=== PATIENT | female | born 1960 | race Caucasian/White ===

== ENCOUNTER 2020-12-10 08:03 | Observation (INO) ==
[2020-12-10] MEDS ORDERED: NORMAL SALINE 1,000 ML IV ONE (08:12)
--- NOTE | 2020-12-10 08:19 | ERNOTE ---
Dyspnea - Date Date of Service: 12/10/20 - General Presenting Symptoms: shortness of breath Time Seen by Provider: 12/10/20 08:09 Source: patient Exam Limitations: no limitations - Immun/Allergies/Home Medications Immunizations: IMMUNIZATION HX Immunizations Up to Date No History of Influenza Vaccine Yes Hx Pneumococcal Vaccination No Allergies/Adverse Reactions: Allergies lorazepam [From Ativan] Adverse Reaction (Verified 12/10/20 08:08) passed out Home Medications: HOME MEDICATIONS Ibuprofen [Motrin] 400 mg PO Q6H PRN 03/05/18 [Last Taken Unknown] naproxen 500 mg tablet,delayed release 500 mg PO BID PRN 11/21/19 [Last Taken Unknown] clomipramine 50 mg capsule 50 mg PO TID #270 cap 09/14/20 [Last Taken Unknown] tranylcypromine 10 mg tablet 10 mg PO TID #270 tab 09/14/20 [Last Taken Unknown] - History of Present Illness Narrative: patient presents with palpitations, SOB and fever. SH ehas been sick for 1 week. No cough, fever 102. No COVID contacts. No CP. Has not seen anyone else fo rthis. Feels her heart beating in her chets. No abdominal pain. No rash or leg swelling. Severity: moderate Treatment PENOLOGY TEACHER: none Initiating event: Reports: unknown Frequency of episodes: Reports: no prior episodes Modifying Factors - (Improves): Reports: nothing Modifying Factors (Worsens): Reports: activity Associated Symptoms-Dyspnea: Reports: fever/chills, palpitations. Denies: chest pain/discomfort, cough, wheezing, ankle/leg swelling, weakness Prior Treatment: Denies: recently seen Review of Systems - Review of Systems Constitutional: Absent: fever EYE: Present: no symptoms reported ENT: Absent: sore throat Respiratory: Present: shortness of breath Cardiology: Absent: chest pain Gastrointestinal/Abdominal: Absent: abdominal pain Genitourinary: Absent: dysuria Neurological: Absent: weakness All Other Systems: All systems neg except as marked Medical History (Last Reviewed 12/10/20 @ 08:17 by Nader Bernardo MD) ADD (attention deficit disorder) Depression Foot pain, left GERD (gastroesophageal reflux disease) Hypersomnia, unspecified Insomnia Lichen planus Obsessive-compulsive behavior Palpitations Surgical History: Surgical History (Last Reviewed 12/10/20 @ 08:17 by Nader Bernardo MD) H/O brain surgery H/O dilation and curettage History of ear surgery Family History: Family History (Last Reviewed 12/10/20 @ 08:17 by Nader Bernardo MD) Father Hypertension Mother Hypertension Social History: (Last Reviewed 12/10/20 @ 08:17 by Nader Bernardo MD) Social History: Marital status: Single lives independently: Yes Highest level of school completed/degree received: Associate degree: occupat Service: No Tobacco: Smoking Status: Never smoker Alcohol: alcohol intake: never Substance Use: substance use type: does not use Dietary Habits: caffeine: Yes caffeine comment: every day Exercise: Physical activity type: other cardio Physical activity functional status: independent ambulation frequency: 1-2 times per week Physical Exam - Physical Exam General Appearance: Present: alert, no apparent distress Head Exam: Present: normal inspection, no evidence of injury Eye Exam: Normal inspection: bilateral, PERRL: bilateral Ears, Nose, Throat: Present: normal ENT inspection Neck: Present: normal inspection Respiratory: Present: lungs clear. Absent: no accessory muscle use, decreased breath sounds, wheezing Cardiovascular/Chest: Present: normal peripheral pulses, tachycardia Gastrointestinal/Abdominal: Present: normal bowel sounds, nontender, nondistended, soft Back Exam: Absent: CVA tenderness (R), CVA tenderness (L) Extremity Exam: Present: normal inspection, normal range of motion, no edema Neurological Exam: Present: alert, no motor/sensory deficits, drum drier II-XII nml as tested Skin Exam: Present: normal color, warm/dry Progress - Results and Orders Patient's Lab Results:: I have reviewed the patient's lab results. - Vital Signs Patient's Vital Signs:: I have reviewed the patient's vital signs. Vital Signs: Vital Signs 12/10/20 08:03 Temperature 36.7 C Pulse Rate 98 Respiratory Rate 18 Blood Pressure 125/70 O2 Sat by Pulse Oximetry 93 - EKG EKG #1 EKG read: Interp. by me EKG Comments: Sinus tachycardia rate 101, ectopy. Non-specific, no STEMI - X-Ray X-Ray #1 X-Ray: chest Interpretation: Interp. by me X-ray Comments: I personally reviewed CXR image as well as official radiology report' - Progress/Reassessment Chief Complaint: Dyspnea Progress Note-Subjective: 12/10/20 11:45 Patient has COVID Dx here. She was noted to be 88% RA walking back to room per nursing so started on [place] oxygen. Given this she will be admitted. IV Decadron given. SQ Lovenox given d/t elevated d-dimer. I was with a CODE so nursing discussed the case with Dr Velasquez who will admit. Departure Clinical Impression: Pneumonia due to COVID-19 virus, Hypoxia - Departure Disposition: Still a patient Condition: Fair
[2020-12-10 08:42] LABS: Hematocrit 35.9 % (37.0-47.0); Hemoglobin 11.6 gm/dL (12.5-16.0); Mean Cell Volume 85.9 fl (78-100); Mean Corpuscular Hemoglobin 27.8 pg (27-31); Mean Corpuscular Hgb Conc 32.3 g/dl (32-36); Mean Platelet Volume 9.4 fl (8-12.5); Neutrophil # 4.3 K/mm3 (1.3-6.0); Platelet Count 504 K/mm3 (150-450); Red Blood Count 4.18 M/mm3 (4.2-5.4); Red Cell Distribution Width 13.3 % (11.5-14.0); White Blood Count 6.6 K/mm3 (4.0-10.5)
[2020-12-10] MEDS ORDERED: DEXAMETHASONE SODIUM PHOSP/PF 10 MG/ML VIAL IV ONE (08:44)
[2020-12-10 09:01] LABS: BUN/Creatinine Ratio 15.4 (9.0-21.6); Blood Urea Nitrogen 16 mg/dL (3-23); Carbon Dioxide 27.4 mmol/L (24-32.6); Chloride 102 mmol/L (97-106); Glucose * 114 mg/dL (70-110); Potassium 3.7 mmol/L (3.4-4.6); Sodium 139 mmol/L (132-142)
[2020-12-10 09:02] LABS: ALT 68 U/L (19-67); AST 46 U/L (0-48); Albumin * 2.9 gm/dl (3.4-5.0); Alkaline Phosphatase * 273 U/L (50-170); Anion Gap 13.3 mmol/L (6.8-13.8); BNP * 266 pg/mL (5-205); Bilirubin, Total 0.5 mg/dL (0.0-1.1); Ca. Corrected For Albumin 9.3 mg/dL (8.4-10.2); Calcium * 8.7 mg/dL (7.9-10.9); Total Protein 7.7 gm/dL (6.2-8.2); Troponin I Less than 0.017 ng/mL (0.00-0.10)
[2020-12-10] MEDS ORDERED: ENOXAPARIN SODIUM 100 MG/ML SYRG SC ONE ×2 (10:23→17:01)
--- NOTE | 2020-12-10 13:29 | HP ---
Chief Complaint - Chief Complaint Date of Service: 12/10/20 Time of Service: 12:58 Chief Complaint: Shortness of breath x1 week History of Present Illness: 59-year-old female with a past medical history of GERD, obsessive-compulsive b ehavior, depression, attention deficit disorder, lichen planus presents from home with complaints of shortness of breath for the past 1 week. Symptoms associated with runny nose, sore tongue, substernal chest discomfort and fever 102. In the ER she was found to be hypoxic in the high 80s on room air, tachypneic at 30 with tachycardia of 119. Blood work showed mild anemia with hemoglobin 11.6, GFR 57, D-dimer of 2.92, positive for COVID-19. Chest x-ray showed bilateral perihilar and bibasilar heterogeneous opacities which could represent multifocal pneumonia. They recommend repeat x-ray in 6 to 8 weeks to ensure resolution and exclude an underlying neoplasm. In the ER she received a dose of Lovenox, IV fluids and 1 dose of dexamethasone. She is being admitted for further evaluation management of Covid pneumonia. Medical History (Last Reviewed 12/10/20 @ 08:17 by Nader Bernardo MD) ADD (attention deficit disorder) Depression Foot pain, left GERD (gastroesophageal reflux disease) Hypersomnia, unspecified Insomnia Lichen planus Obsessive-compulsive behavior Palpitations Surgical History: Surgical History (Last Reviewed 12/10/20 @ 08:17 by Nader Bernardo MD) H/O brain surgery H/O dilation and curettage History of ear surgery Family History: Family History (Last Reviewed 12/10/20 @ 08:17 by Nader Bernardo MD) Father Hypertension Mother Hypertension Social History: (Last Reviewed 12/10/20 @ 08:17 by Nader Bernardo MD) Social History: Marital status: Single lives independently: Yes Highest level of school completed/degree received: Associate degree: occupat Service: No Tobacco: Smoking Status: Never smoker Alcohol: alcohol intake: never Substance Use: substance use type: does not use Dietary Habits: caffeine: Yes caffeine comment: every day Exercise: Physical activity type: other cardio Physical activity functional status: independent ambulation frequency: 1-2 times per week Review Of Systems (GEN) - Review of Systems Generalized/Overall Review: Present: Fever, Malaise EENTM: Present: Other - Rhinorrhea Respiratory: Present: Shortness of Breath Cardiac: Present: Other - Substernal chest pressure Abdominal: Absent: Abdominal Pain Misc: All systems neg except as marked Immunizations: IMMUNIZATION HX Immunizations Up to Date No History of Influenza Vaccine Yes Hx Pneumococcal Vaccination No Allergies/Adverse Reactions: Allergies Allergy/AdvReac Type Severity Reaction Status Date / Time lorazepam [From Ativan] AdvReac passed out Verified 12/10/20 08:08 Home Medications: HOME MEDICATIONS Ibuprofen [Motrin] 400 mg PO Q6H PRN 03/05/18 [Last Taken Unknown] naproxen 500 mg tablet,delayed release 500 mg PO BID PRN 11/21/19 [Last Taken Unknown] clomipramine 50 mg capsule 50 mg PO TID #270 cap 09/14/20 [Last Taken Unknown] tranylcypromine 10 mg tablet 10 mg PO TID #270 tab 09/14/20 [Last Taken Unknown] Exam - Exam Vital Signs: Vital Signs - Last Taken Temp 36.2 C 12/10/20 11:52 Pulse 100 12/10/20 12:39 Resp 28 H 12/10/20 12:39 BP 119/72 12/10/20 12:39 Pulse Ox 92 L 12/10/20 12:39 Constitutional: Present: Alert, Cooperative, Well developed, Well nourished, No distress, Middle aged ENT Exam: Present: hearing grossly normal - Low, moist mucous membranes Eye Exam: bilateral eye: normal inspection, PERRL, EOMI Neck: Present: non-tender, supple. Absent: lymphadenopathy (R), lymphadenopathy (L) Back Exam: Present: normal inspection, no CVA tenderness, no vertebral tenderness Respiratory: Present: no respiratory distress, no accessory muscle use - Bilateral bases, decreased breath sounds - Throughout all lung nichole, right worse than left, crackles - Mild in bilateral bases, rhonchi, No wheezing Cardiovascular/Chest: Present: normal peripheral pulses, no edema, no murmur, tachycardia Peripheral Pulses: dorsalis-pedis (R): 1+, dorsalis-pedis (L): 1+ Abdomen: Present: Normal bowel sounds, soft, nontender Extremity: Present: no pedal edema Skin Exam: Present: normal color, warm/dry Neurologic: Present: alert, normal mood/affect Appearance: Present: appropriate appearance, appropriate insight Eye contact: Present: cooperative, good eye contact Thoughts: Present: normal thought pattern, normal mood /affect Diagnostic Studies: Abnormal Lab Results 12/10/20 12/10/20 12/10/20 Range/Units 08:35 08:35 08:35 RBC 4.18 L (4.2-5.4) M/mm3 Hgb 11.6 L (12.5-16.0) gm/dL Hct 35.9 L (37.0-47.0) % Plt Count 504 H (150-450) K/mm3 Immature Gran % (Auto) 1.40 H (0.001-0.429) % Immature Gran # (Auto) 0.09 H (0.000-0.0310) K/mm3 Monocytes % 9.9 H (0.0-9) % Lymphocytes # 1.33 L (1.5-3.5) k/mm3 D-Dimer 2.92 H (0.19-0.49) ug/mL Est GFR (Non-Af Amer) 57 L (60-130) mL/min Random Glucose 114 H (70-110) mg/dL ALT 68 H (19-67) U/L Alkaline Phosphatase 273 H (50-170) U/L B-Natriuretic Peptide 266 H (5-205) pg/mL Albumin 2.9 L (3.4-5.0) gm/dl Procalcitonin (0.05-0.50) ng/mL SARS-CoV-2 (PCR) (NotDetected) 12/10/20 12/10/20 Range/Units 08:35 08:40 RBC (4.2-5.4) M/mm3 Hgb (12.5-16.0) gm/dL Hct (37.0-47.0) % Plt Count (150-450) K/mm3 Immature Gran % (Auto) (0.001-0.429) % Immature Gran # (Auto) (0.000-0.0310) K/mm3 Monocytes % (0.0-9) % Lymphocytes # (1.5-3.5) k/mm3 D-Dimer (0.19-0.49) ug/mL Est GFR (Non-Af Amer) (60-130) mL/min Random Glucose (70-110) mg/dL ALT (19-67) U/L Alkaline Phosphatase (50-170) U/L B-Natriuretic Peptide (5-205) pg/mL Albumin (3.4-5.0) gm/dl Procalcitonin Less than 0.05 L (0.05-0.50) ng/mL SARS-CoV-2 (PCR) Detected H (NotDetected) Laboratory Results WBC 6.6 K/mm3 (4.0-10.5) 12/10/20 08:35 RBC 4.18 M/mm3 (4.2-5.4) L 12/10/20 08:35 Hgb 11.6 gm/dL (12.5-16.0) L 12/10/20 08:35 Hct 35.9 % (37.0-47.0) L 12/10/20 08:35 MCV 85.9 fl (78-100) 12/10/20 08:35 MCH 27.8 pg (27-31) 12/10/20 08:35 MCHC 32.3 g/dl (32-36) 12/10/20 08:35 RDW 13.3 % (11.5-14.0) 12/10/20 08:35 Plt Count 504 K/mm3 (150-450) H 12/10/20 08:35 MPV 9.4 fl (8-12.5) 12/10/20 08:35 Immature Gran % (Auto) 1.40 % (0.001-0.429) H 12/10/20 08:35 Immature Gran # (Auto) 0.09 K/mm3 (0.000-0.0310) H 12/10/20 08:35 Neutrophils % 66.0 % (42-75.0) 12/10/20 08:35 Lymphocytes % 20.2 % (20-51) 12/10/20 08:35 Monocytes % 9.9 % (0.0-9) H 12/10/20 08:35 Eosinophils % 1.7 % (0.0-3.0) 12/10/20 08:35 Basophils % 0.8 % (0.0-1.0) 12/10/20 08:35 Nucleated RBC % 0.0 k/mm3 (0-1) 12/10/20 08:35 Neutrophils # 4.3 K/mm3 (1.3-6.0) 12/10/20 08:35 Lymphocytes # 1.33 k/mm3 (1.5-3.5) L 12/10/20 08:35 Monocytes # 0.7 k/mm3 (0.0-1.0) 12/10/20 08:35 Eosinophils # 0.1 k/mm3 (0.0-0.7) 12/10/20 08:35 Absolute Basophils 0.1 k/mm3 (0.0-0.1) 12/10/20 08:35 D-Dimer 2.92 ug/mL (0.19-0.49) H 12/10/20 08:35 Sodium 139 mmol/L (132-142) 12/10/20 08:35 Plasma Sodium 139 mmol/L (130-142) 12/10/20 08:35 Potassium 3.7 mmol/L (3.4-4.6) 12/10/20 08:35 Chloride 102 mmol/L (97-106) 12/10/20 08:35 Carbon Dioxide 27.4 mmol/L (24-32.6) 12/10/20 08:35 Anion Gap 13.3 mmol/L (6.8-13.8) 12/10/20 08:35 BUN 16 mg/dL (3-23) 12/10/20 08:35 Creatinine 1.04 mg/dL (0.4-1.4) 12/10/20 08:35 Est GFR (Non-Af Amer) 57 mL/min (60-130) L 12/10/20 08:35 BUN/Creatinine Ratio 15.4 (9.0-21.6) 12/10/20 08:35 Random Glucose 114 mg/dL (70-110) H 12/10/20 08:35 Lactic Acid, Venous 1.1 mmol/L (0.4-2.0) 12/10/20 08:35 Calcium 8.7 mg/dL (7.9-10.9) 12/10/20 08:35 Calcium Adj for Albumin 9.3 mg/dL (8.4-10.2) 12/10/20 08:35 Total Bilirubin 0.5 mg/dL (0.0-1.1) 12/10/20 08:35 AST 46 U/L (0-48) 12/10/20 08:35 ALT 68 U/L (19-67) H 12/10/20 08:35 Alkaline Phosphatase 273 U/L (50-170) H 12/10/20 08:35 Troponin I Less than 0.017 ng/mL (0.00-0.10) 12/10/20 08:35 B-Natriuretic Peptide 266 pg/mL (5-205) H 12/10/20 08:35 Total Protein 7.7 gm/dL (6.2-8.2) 12/10/20 08:35 Albumin 2.9 gm/dl (3.4-5.0) L 12/10/20 08:35 Procalcitonin Less than 0.05 ng/mL (0.05-0.50) L 12/10/20 08:35 SARS-CoV-2 (PCR) Detected (NotDetected) H 12/10/20 08:40 Assessment/Plan - Narrative Narrative: 59-year-old female with a past medical history of GERD, obsessive-compulsive behavior, depression, attention deficit disorder, lichen planus presents from home with complaints of shortness of breath for the past 1 week. Symptoms associated with runny nose, sore tongue and fever 102. In the ER she was found to be hypoxic in the high 80s on room air, tachypneic at 30 with tachycardia of 119. Blood work showed mild anemia with hemoglobin 11.6, GFR 57, D-dimer of 2.92, positive for COVID-19. Chest x-ray showed bilateral perihilar and bibasilar heterogeneous opacities which could represent multifocal pneumonia. They recommend repeat x-ray in 6 to 8 weeks to ensure resolution and exclude an underlying neoplasm. In the ER she received a dose of Lovenox, IV fluids and 1 dose of dexamethasone. She is being admitted for further evaluation management of Covid pneumonia. Plan #1 continue with dexamethasone 6 mg daily #2 continue with oxygen as needed and Taper off of oxygen as tolerated, goal O2 sats is greater than 90% #3 resume home medications for comorbidities #4 DVT prophylaxis with Lovenox - Assessment/Plan (1) Pneumonia due to COVID-19 virus Problem: Acute (2) Acute respiratory failure with hypoxia Problem: Acute (3) OCD (obsessive compulsive disorder) Problem: Chronic Qualifiers: (4) Depression Problem: Acute (5) ADD (attention deficit disorder) Problem: Acute
[2020-12-10] MEDS: ACETAMINOPHEN 325 MG TABLET PO PRN ×2 (14:30→20:46)
[2020-12-10] MEDS ORDERED: CLOMIPRAMINE 50 MG PO SCH (17:00)
[2020-12-10] MEDS: TRANYLCYPROMINE SULFATE 10 MG PO SCH ×2 (19:27→20:45)
[2020-12-10] MEDS ORDERED: CLOMIPRAMINE HCL 75 MG PO SCH (21:00)
[2020-12-11] MEDS: ACETAMINOPHEN 325 MG TABLET PO PRN (07:08)
[2020-12-11] MEDS ORDERED: TRANYLCYPROMINE SULFATE 10 MG PO SCH (08:00)
[2020-12-11] MEDS ORDERED: DEXAMETHASONE 2 MG TABLET PO SCH (09:00)
[2020-12-11] MEDS ORDERED: ENOXAPARIN SODIUM 40 MG/0.4 ML SYRG SC SCH (09:00)
--- NOTE | 2020-12-11 09:27 | DS ---
(1) Pneumonia due to COVID-19 virus Problem: Acute (2) Acute respiratory failure with hypoxia Problem: Acute (3) OCD (obsessive compulsive disorder) Problem: Chronic Qualifiers: (4) Depression Problem: Acute (5) ADD (attention deficit disorder) Problem: Acute Hospital Course: 59-year-old female with a past medical history of GERD, obsessive-compulsive behavior, depression, attention deficit disorder, lichen planus presents from home with complaints of shortness of breath for the past 1 week. Symptoms associated with runny nose, sore tongue and fever 102. In the ER she was found to be hypoxic in the high 80s on room air, tachypneic at 30 with tachycardia of 119. Blood work showed mild anemia with hemoglobin 11.6, GFR 57, D-dimer of 2.92, positive for COVID-19. Chest x-ray showed bilateral perihilar and bibasilar heterogeneous opacities which could represent multifocal pneumonia. They recommend repeat x-ray in 6 to 8 weeks to ensure resolution and exclude an underlying neoplasm. In the ER she received a dose of Lovenox, IV fluids and 1 dose of dexamethasone. She is being admitted for further evaluation management of Covid pneumonia. She remained afebrile throughout her hospitalization. She has been tapered off of oxygen and is saturating greater than 90% on room air at rest and with ambulation. She is stable to be discharged home today. She will follow-up with me in the office. Procedures Performed: none Results and Findings: Pending Mircobiology Results 12/10/20 08:35 Blood Blood Culture - Preliminary NO GROWTH 24 HOURS Lab Pending Results 12/10/20 08:35: WBC 6.6, RBC 4.18 L, Hgb 11.6 L, Hct 35.9 L, MCV 85.9, MCH 27.8, MCHC 32.3, RDW 13.3, Plt Count 504 H, MPV 9.4, Immature Gran % (Auto) 1.40 H, Immature Gran # (Auto) 0.09 H, Neutrophils % 66.0, Lymphocytes % 20.2, Monocytes % 9.9 H, Eosinophils % 1.7, Basophils % 0.8, Nucleated RBC % 0.0, Neutrophils # 4.3, Lymphocytes # 1.33 L, Monocytes # 0.7, Eosinophils # 0.1, Absolute Basophils 0.1 12/10/20 08:35: Sodium 139, Plasma Sodium 139, Potassium 3.7, Chloride 102, Carbon Dioxide 27.4, Anion Gap 13.3, BUN 16, Creatinine 1.04, Est GFR (Non-Af Amer) 57 L, BUN/Creatinine Ratio 15.4, Random Glucose 114 H, Calcium 8.7, Calcium Adj for Albumin 9.3, Total Bilirubin 0.5, AST 46, ALT 68 H, Alkaline Phosphatase 273 H, Troponin I Less than 0.017, B-Natriuretic Peptide 266 H, Total Protein 7.7, Albumin 2.9 L 12/10/20 08:35: D-Dimer 2.92 H 12/10/20 08:35: Lactic Acid, Venous 1.1 12/10/20 08:35: Procalcitonin Less than 0.05 L 12/10/20 08:40: SARS-CoV-2 (PCR) Detected H Discharge Location: Home Disposition: Home self-care Condition: Fair Discharge Activity: Activity as tolerated Discharge Diet: General/regular food Referrals: Natalia Velasquez MD [Primary Care Provider] - Complete Home Medications List: Complete Home Medication List: Ibuprofen [Motrin] 400 mg PO Q6H PRN 03/05/18 naproxen 500 mg tablet,delayed release 500 mg PO BID PRN 11/21/19 Clomipramine HCl [Anafranil] 150 mg PO HS 12/11/20 Tranylcypromine Sulfate 30 mg PO QAM 12/11/20
[2020-12-11] MEDS ORDERED: [UNRECOGNIZED DRUG - OTHER] MM PRN (10:10)
[2020-12-11 10:51] VITALS: BP 124/57
[2020-12-11] MEDS ORDERED: CLOMIPRAMINE HCL 75 MG PO SCH (21:00)
== END 2020-12-11 11:30 | disposition home or self-care (01) ==
LOC: ER 08:03 → SCU 08:03 → MS 12:04
PROVIDERS: ADMIT Internal Medicine; ATTEND Internal Medicine
DX: U07.1 COVID-19; F98.8 Other specified behavioral and emotional disorders with onset usually occurring in childhood and adolescence; F42.9 Obsessive-compulsive disorder, unspecified; J12.82 Pneumonia due to coronavirus disease 2019; F32.9 Major depressive disorder, single episode, unspecified; R00.2 Palpitations; J96.01 Acute respiratory failure with hypoxia